=== PATIENT | male | born 1965 | race African-American/Black ===

== ENCOUNTER 2016-08-06 14:43 | Emergency (ER) | payer MEDICARE, MEDICAID ==
[~2016-08-06] VITALS: Ht 172.7 cm; Wt 59.1 kg
[~2016-08-06 14:43] MED LIST: ANTIVERT 12.512.5 MG PO; ANTIVERT 25MG25 MG PO; BACTRIM DS 8001 TAB PO; CIPRO; CIPRO 100MG TA100 MG PO; CIPRO 250MG TA250 MG PO; CIPRO 500MG TA500 MG PO; CLEOCIN HCL300 MG PO; CLINDAMYCIN300 MG PO; DARVOCET N; DAZIDOX20 MG PO; DIAZEPAM5 MG PO; DILAUDID 4MG TAB4 MG PO; EFFEXOR; EXALGO8 MG PO; FLOMAX 0.40.4 MG/CAP PO; LORTAB 10/500 51 TAB; LORTAB 5/500 501 TAB PO; LYRICA 50MG CAP50 MG PO; MECLIZINE12.5 MG PO; NAPROSYN500 MG PO; NORCO 325 MG-51 TAB PO; PERCOCET 325 MG1 TA2 PO; PERCOCET 5/321 UDTAB PO; PHENERGAN 25 TA25 MG PO; PRISTIQ50 MG PO; PROPOXYPHENE HC65 MG PO; SOMA 350MG350 MG/TAB PO; TYLENOL W/COD1 UDTAB PO; VALIUM 5MG T5 MG/TAB PO; VALIUM5 MG PO; WARFARIN PO; ZOCOR 20MG20 MG PO
[2016-08-06 15:01] VITALS: BP 137/95; TEMP 99
[2016-08-06 16:56] LABS: BASO % 0.6 % (0.0-2.0); EOS # 0.1 (0.0-0.7); GRAN # 4.1 (1.4-6.5); GRAN % 57.3 % (42.2-75.2); HEMOGLOBIN 14.7 g/dl (13.5-18.0); LYMPH # 1.9 (1.2-3.4); LYMPH % 27.4 % (20.0-51.0); MEAN CELL VOLUME 84 fl (80.0-100.0); MEAN CORPUSCULAR HEMOGLOBIN 28 pg (27.0-31.0); MEAN CORPUSCULAR HGB CONC 33 g/dl (33.0-37.0); MEAN PLATELET VOLUME 10.8 fl (7.4-10.4); MONO % 13.4 % (1.7-9.3); PLATELET COUNT 250 K/mm3 (130-400); RED BLOOD COUNT 5.24 M/mm3 (4.20-5.60); REDCELL DISTRIBUTION WIDTH-CV 15.3 % (11.5-14.5); WHITE BLOOD COUNT 7.1 K/mm3 (4.8-10.8)
[2016-08-06 17:12] LABS: ADJUSTED CALCIUM 9.8 mg/dL (8.4-10.2); ALBUMIN 4.6 gm/dL (3.5-5.0); BILIRUBIN,TOTAL 0.8 mg/dL (0.0-1.0); CALCIUM 10.3 mg/dL (8.4-10.2); CREATININE, serum 0.87 mg/dL (0.66-1.25); POTASSIUM 4.2 mmol/L (3.4-5.0)
[2016-08-06] MEDS ORDERED: CLEOCIN HC150 MG/CAP PO (17:57)
[2016-08-06 18:09] VITALS: PULSE 74
== END 2016-08-06 18:11 | disposition home or self-care (01) ==
LOC: COL.ER 14:43
PROVIDERS: Emergency Medicine
DX: M79.604 Pain in right leg (principal); I89.1 Lymphangitis
CPT/HCPCS: J7030

== ENCOUNTER → 2017-10-31 | Outpatient (CLI) | payer MEDICARE, MEDICAID ==
[~2017-10-31] MED LIST changes: +CLEOCIN HC150 MG/CAP PO
== END ==
LOC: COL.RAD 09:31
DX: M86.661 Other chronic osteomyelitis, right tibia and fibula (principal)
CPT/HCPCS: A9503

== ENCOUNTER → 2017-12-10 | Outpatient (CLI) | payer MEDICARE, MEDICAID | LOC: MHCPAIN 14:25 | DX: G89.29 Other chronic pain (principal); M47.27 Other spondylosis with radiculopathy, lumbosacral region; M53.3 Sacrococcygeal disorders, not elsewhere classified; F17.210 Nicotine dependence, cigarettes, uncomplicated | CPT/HCPCS: G0463 ==

== ENCOUNTER → 2017-12-10 | Outpatient (CLI) | payer MEDICARE, MEDICAID ==
[2017-12-10 16:16] LABS: BASO % 0.6 % (0.0-2.0); EOS % 0.7 % (0-4.0); GRAN # 2.5 (1.4-6.5); GRAN % 45.7 % (42.2-75.2); HEMATOCRIT 46.4 % (42.0-52.0); HEMOGLOBIN 15.6 g/dl (13.5-18.0); LYMPH % 37.8 % (20.0-51.0); MEAN CELL VOLUME 84 fl (80.0-100.0); MEAN CORPUSCULAR HEMOGLOBIN 28 pg (27.0-31.0); MEAN CORPUSCULAR HGB CONC 34 g/dl (33.0-37.0); MEAN PLATELET VOLUME 9.4 fl (7.4-10.4); MONO # 0.8 (0.1-0.6); PLATELET COUNT 287 K/mm3 (130-400); RED BLOOD COUNT 5.52 M/mm3 (4.20-5.60); REDCELL DISTRIBUTION WIDTH-CV 14.9 % (11.5-14.5)
[2017-12-10 16:49] LABS: ERYTHROCYTE SEDIMENTATION RATE 1 mm/hr (0-30)
== END ==
LOC: COL.LAB 15:37
PROVIDERS: Anesthesiology Pain Medicine
DX: Z87.39 Personal history of other diseases of the musculoskeletal system and connective tissue (principal)

== ENCOUNTER → 2017-12-26 | Outpatient (CLI) | payer MEDICARE, MEDICAID | LOC: MHCPAIN 12:45 | DX: M47.817 Spondylosis without myelopathy or radiculopathy, lumbosacral region (principal); M51.27 Other intervertebral disc displacement, lumbosacral region | CPT/HCPCS: J1100; J2250; J3010; Q9967 ==

== ENCOUNTER → 2018-01-06 | Outpatient (CLI) | payer MEDICARE, MEDICAID | LOC: MHCPAIN 14:11 | DX: G89.29 Other chronic pain (principal); M47.817 Spondylosis without myelopathy or radiculopathy, lumbosacral region; M54.16 Radiculopathy, lumbar region; M53.3 Sacrococcygeal disorders, not elsewhere classified | CPT/HCPCS: G0463 ==

== ENCOUNTER → 2018-02-11 | Outpatient (CLI) | payer MEDICARE, MEDICAID | LOC: MHCPAIN 11:24 | DX: G89.29 Other chronic pain (principal); M47.817 Spondylosis without myelopathy or radiculopathy, lumbosacral region; M54.16 Radiculopathy, lumbar region; M53.3 Sacrococcygeal disorders, not elsewhere classified | CPT/HCPCS: G0463 ==

== ENCOUNTER → 2018-02-20 | Outpatient (CLI) | payer MEDICARE, MEDICAID | LOC: MHCPAIN 13:10 | DX: M47.817 Spondylosis without myelopathy or radiculopathy, lumbosacral region (principal) | CPT/HCPCS: J1040; Q9967 ==

== ENCOUNTER → 2018-03-25 | Outpatient (CLI) | payer MEDICARE, MEDICAID | LOC: MHCPAIN 14:56 | DX: G89.29 Other chronic pain (principal); M47.817 Spondylosis without myelopathy or radiculopathy, lumbosacral region; M54.16 Radiculopathy, lumbar region; M53.3 Sacrococcygeal disorders, not elsewhere classified | CPT/HCPCS: G0463; J1040; Q9967 ==

== ENCOUNTER → 2018-03-27 | Outpatient (CLI) | payer MEDICARE, MEDICAID ==
[~2018-03-27] MED LIST changes: +NORCO 325 MG-7.1 TAB PO
== END ==
LOC: MHCPAIN 13:17
DX: M53.3 Sacrococcygeal disorders, not elsewhere classified (principal); M47.817 Spondylosis without myelopathy or radiculopathy, lumbosacral region
CPT/HCPCS: G0260

== ENCOUNTER → 2018-04-22 | Outpatient (CLI) | payer MEDICARE, MEDICAID | LOC: MHCPAIN 13:52 | DX: G89.29 Other chronic pain (principal); M47.817 Spondylosis without myelopathy or radiculopathy, lumbosacral region; M54.16 Radiculopathy, lumbar region; M53.3 Sacrococcygeal disorders, not elsewhere classified | CPT/HCPCS: G0463 ==

== ENCOUNTER → 2018-08-20 | Outpatient (CLI) | payer MEDICARE, MEDICAID | LOC: MHCPAIN 13:54 | DX: G89.29 Other chronic pain (principal); M47.817 Spondylosis without myelopathy or radiculopathy, lumbosacral region; M54.16 Radiculopathy, lumbar region; M53.3 Sacrococcygeal disorders, not elsewhere classified | CPT/HCPCS: G0463 ==

== ENCOUNTER → 2018-08-21 | Outpatient (CLI) | payer MEDICARE, MEDICAID | LOC: MHCPAIN 13:20 | DX: M53.3 Sacrococcygeal disorders, not elsewhere classified (principal) | CPT/HCPCS: G0260; J1040; Q9967 ==

== ENCOUNTER → 2018-12-31 | Outpatient (CLI) | payer MEDICARE, MEDICAID | LOC: MHCPAIN 05-29 14:31 | DX: G89.29 Other chronic pain (principal); M47.817 Spondylosis without myelopathy or radiculopathy, lumbosacral region; M54.16 Radiculopathy, lumbar region; M53.3 Sacrococcygeal disorders, not elsewhere classified | CPT/HCPCS: G0463 ==

== ENCOUNTER 2019-08-12 15:29 | Emergency (ER) | payer MEDICARE, MEDICAID ==
[~2019-08-12] VITALS: Ht 172.7 cm; Wt 59.1 kg
[~2019-08-12 15:29] MED LIST changes: +FLEXERIL 1010 MG/TAB PO
[2019-08-12 15:32] VITALS: TEMP 97.1
[2019-08-12 16:02] LABS: BASO % 0.6 % (0.0-2.0); EOS # 0.1 (0.0-0.7); EOS % 1.2 % (0-4.0); GRAN # 2.8 (1.4-6.5); GRAN % 40.3 % (42.2-75.2); HEMATOCRIT 43.2 % (42.0-52.0); HEMOGLOBIN 14.1 g/dl (13.5-18.0); LYMPH % 43.2 % (20.0-51.0); MEAN CELL VOLUME 86 fl (80.0-100.0); MEAN CORPUSCULAR HEMOGLOBIN 28 pg (27.0-31.0); MEAN CORPUSCULAR HGB CONC 33 g/dl (33.0-37.0); MEAN PLATELET VOLUME 9.6 fl (7.4-10.4); MONO % 14.3 % (1.7-9.3); PLATELET COUNT 270 K/mm3 (130-400); RED BLOOD COUNT 5.05 M/mm3 (4.20-5.60)
[2019-08-12 16:07] LABS: INR 0.9 (0.8-3.0); PROTHROMBIN TIME 10.4 SECONDS (9.7-12.8)
[2019-08-12 16:10] LABS: PARTIAL THROMBOPLASTIN TIME 28.6 SECONDS (26.0-37.0)
[2019-08-12 16:11] LABS: D-DIMER < 200.00 ng/mLDDu (200-230)
[2019-08-12 16:15] LABS: ALANINE AMINOTRANSFERASE 24 U/L (21-72); ALBUMIN 4.6 gm/dL (3.5-5.0); ALKALINE PHOSPHATASE 70 U/L (50-136); ANION GAP 7 mmol/L (7-16); AST,SGOT 29 U/L (15-37); BILIRUBIN,TOTAL 0.5 mg/dL (0.0-1.0); BLOOD UREA NITROGEN 11 mg/dL (9-20); CALCIUM 9.6 mg/dL (8.4-10.2); CARBON DIOXIDE 25 mmol/L (22-30); CHLORIDE 107 mmol/L (98-107); CREATINE KINASE 160 U/L (55-170); CREATININE, serum 0.76 (0.66-1.25); GLUCOSE 107 mg/dL (74-106); LIPASE 36 U/L (23-300); POTASSIUM 4.3 mmol/L (3.4-5.0); SODIUM 139 mmol/L (137-145); TOTAL PROTEIN 7.8 gm/dL (6.4-8.2)
[2019-08-12 16:32] LABS: TROPONIN-I < 0.012 ng/mL (0.000-0.035)
[2019-08-12 20:00] VITALS: BP 116/79; PULSE 55
== END 2019-08-12 20:00 | disposition home or self-care (01) ==
LOC: COL.ER 15:29
PROVIDERS: Emergency Medicine
DX: R07.89 Other chest pain (principal); E78.5 Hyperlipidemia, unspecified; F17.210 Nicotine dependence, cigarettes, uncomplicated
CPT/HCPCS: J1885

== ENCOUNTER 2019-10-06 08:51 | Day surgery (SDC) | payer MEDICARE, MEDICAID ==
[2019-10-06] VITALS (13 sets, daily range): BP systolic 118–164; BP diastolic 75–95; PULSE 52–69; TEMP 98.5
[~2019-10-06] VITALS: Ht 172.8 cm; Wt 62.9 kg
[2019-10-06 09:36] LABS: HEMATOCRIT 39.6 % (42.0-52.0); MEAN CELL VOLUME 85 fl (80.0-100.0); MEAN CORPUSCULAR HEMOGLOBIN 28 pg (27.0-31.0); MEAN CORPUSCULAR HGB CONC 33 g/dl (33.0-37.0); MEAN PLATELET VOLUME 9.7 fl (7.4-10.4); PLATELET COUNT 234 K/mm3 (130-400); RED BLOOD COUNT 4.68 M/mm3 (4.20-5.60); REDCELL DISTRIBUTION WIDTH-CV 15.5 % (11.5-14.5)
[2019-10-06 09:40] LABS: INR 0.9 (0.8-3.0); PROTHROMBIN TIME 9.9 SECONDS (9.7-12.8)
[2019-10-06 09:43] LABS: PARTIAL THROMBOPLASTIN TIME 27.6 SECONDS (26.0-37.0)
[2019-10-06 09:54] LABS: CALCIUM 8.7 mg/dL (8.4-10.2); CREATININE, serum 0.8 (0.66-1.25); POTASSIUM 3.9 mmol/L (3.4-5.0)
[2019-10-06] MEDS ORDERED: CIPRO 500MG TA500 MG PO (10:08)
[2019-10-06] MEDS ORDERED: PROTONIX20 MG PO (10:12)
[2019-10-06] MEDS ORDERED: ASPIRIN 81M81 MG/TA2 PO (10:12)
[2019-10-06] MEDS ORDERED: FLOMAX 0.40.4 MG/CAP PO (10:13)
--- NOTE | 2019-10-06 10:20 | NUR ---
Pt to procedure.
--- NOTE | 2019-10-06 10:32 | NUR ---
SEE MERGE FOR MEDICATION ADMINISTRATION TIMES AND INTRA/POST PROCEDURE SEDATION ASSESSMENTS.
--- NOTE | 2019-10-06 10:34 | NUR ---
Pt to procedure.
--- NOTE | 2019-10-06 16:00 | NUR ---
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
--- NOTE | 2019-10-06 16:32 | NUR ---
Pt escorted out and assisted into taxt.
== END 2019-10-06 16:32 | disposition home or self-care (01) ==
LOC: COL.CAR 08:51
PROVIDERS: Internal Medicine Cardiovascular Disease
DX: R94.39 Abnormal result of other cardiovascular function study (principal); I08.3 Combined rheumatic disorders of mitral, aortic and tricuspid valves; R07.89 Other chest pain; J45.909 Unspecified asthma, uncomplicated; I50.20 Unspecified systolic (congestive) heart failure; E78.00 Pure hypercholesterolemia, unspecified; E78.5 Hyperlipidemia, unspecified; M86.661 Other chronic osteomyelitis, right tibia and fibula; G89.29 Other chronic pain; F17.210 Nicotine dependence, cigarettes, uncomplicated; Z88.8 Allergy status to other drugs, medicaments and biological substances; Z88.5 Allergy status to narcotic agent; Z79.51 Long term (current) use of inhaled steroids; Z80.9 Family history of malignant neoplasm, unspecified; Z83.3 Family history of diabetes mellitus; Z86.718 Personal history of other venous thrombosis and embolism; Z79.82 Long term (current) use of aspirin
CPT/HCPCS: J1644; J2250; J3010; Q9967

== ENCOUNTER 2019-11-28 09:48 | Emergency (ER) | payer MEDICARE, MEDICAID ==
[~2019-11-28] VITALS: Ht 172.7 cm; Wt 59.1 kg
[~2019-11-28 09:48] MED LIST changes: +ASPIRIN 81M81 MG/TA2 PO; +PROTONIX20 MG PO
[2019-11-28 10:16] VITALS: BP 141/65
[2019-11-28 10:58] VITALS: TEMP 98.5
[2019-11-28 11:30] LABS: BASO # 0.1 (0.0-0.2); BASO % 0.5 % (0.0-2.0); EOS # 0.2 (0.0-0.7); EOS % 1.3 % (0-4.0); GRAN % 68.8 % (42.2-75.2); HEMATOCRIT 40.7 % (42.0-52.0); HEMOGLOBIN 13.5 g/dl (13.5-18.0); LYMPH # 1.6 (1.2-3.4); LYMPH % 13.9 % (20.0-51.0); MEAN CELL VOLUME 83 fl (80.0-100.0); MEAN CORPUSCULAR HEMOGLOBIN 28 pg (27.0-31.0); MEAN CORPUSCULAR HGB CONC 33 g/dl (33.0-37.0); MEAN PLATELET VOLUME 9.5 fl (7.4-10.4); MONO # 1.7 (0.1-0.6); PLATELET COUNT 254 K/mm3 (130-400); RED BLOOD COUNT 4.88 M/mm3 (4.20-5.60); REDCELL DISTRIBUTION WIDTH-CV 15.2 % (11.5-14.5)
[2019-11-28 11:42] LABS: ALBUMIN 4.3 gm/dL (3.5-5.0); BILIRUBIN,TOTAL 0.6 mg/dL (0.0-1.0); C-REACTIVE PROTEIN 8.3 mg/dL (0.0-0.9); CALCIUM 9.6 mg/dL (8.4-10.2); CREATININE, serum 0.76 (0.66-1.25); POTASSIUM 4.1 mmol/L (3.4-5.0); TOTAL PROTEIN 7.8 gm/dL (6.4-8.2)
[2019-11-28] MEDS ORDERED: OMNICEF 300MG300 MG PO (13:21)
[2019-11-28] MEDS ORDERED: DOXYCYCLINE 10100 MG PO (13:21)
[2019-11-28 14:05] VITALS: PULSE 81
[2019-11-28] MEDS ORDERED: MIRALAX238G PO (20:57)
[2019-11-28] MEDS ORDERED: NORCO 325 MG-51 TAB PO (20:57)
== END 2019-11-28 14:05 | disposition home or self-care (01) ==
LOC: COL.ER 09:48
PROVIDERS: Emergency Medicine
DX: N45.1 Epididymitis (principal); Z79.82 Long term (current) use of aspirin
CPT/HCPCS: J0696; J1170; J2405; J7030

== ENCOUNTER 2019-11-28 18:34 | Emergency (ER) | payer MEDICARE, MEDICAID ==
[~2019-11-28] VITALS: Ht 172.7 cm; Wt 59.1 kg
[~2019-11-28 18:34] MED LIST changes: +DOXYCYCLINE 10100 MG PO; +OMNICEF 300MG300 MG PO
[2019-11-28 18:37] VITALS: BP 135/61; TEMP 99.8
[2019-11-28] MEDS ORDERED: MIRALAX238G PO (20:57)
[2019-11-28] MEDS ORDERED: NORCO 325 MG-51 TAB PO (20:57)
[2019-11-28 21:12] VITALS: PULSE 97
== END 2019-11-28 21:00 | disposition home or self-care (01) ==
LOC: COL.ER 18:34
DX: N45.1 Epididymitis (principal); Z79.82 Long term (current) use of aspirin

== ENCOUNTER → 2020-06-24 | Outpatient (CLI) | payer MEDICARE, MEDICAID ==
[~2020-06-24] MED LIST changes: +MIRALAX238G PO
== END ==
LOC: COL.RAD 15:33
DX: M47.816 Spondylosis without myelopathy or radiculopathy, lumbar region (principal); M47.817 Spondylosis without myelopathy or radiculopathy, lumbosacral region

== ENCOUNTER → 2020-09-07 | Outpatient (CLI) | payer MEDICARE, MEDICAID | LOC: MHCPAIN 14:20 | DX: M47.817 Spondylosis without myelopathy or radiculopathy, lumbosacral region (principal); M54.16 Radiculopathy, lumbar region; M53.3 Sacrococcygeal disorders, not elsewhere classified; G89.29 Other chronic pain | CPT/HCPCS: G0463 ==

== ENCOUNTER 2020-10-04 16:44 | Inpatient (IN) | payer MEDICARE ==
[~2020-10-04] VITALS: Ht 172.7 cm; Wt 59.1 kg
[2020-10-04] MEDS ORDERED: COREG 3.123.125 MG/T PO (17:40)
[2020-10-04] MEDS ORDERED: CYMBALTA 20MG20 MG PO ×2 (17:42→22:28)
[2020-10-04] MEDS ORDERED: CRESTOR20 MG PO (17:42)
[2020-10-04 18:22] LABS: BASO # 0.1 (0.0-0.2); BASO % 0.6 % (0.0-2.0); EOS # 0.1 (0.0-0.7); EOS % 0.7 % (0-4.0); GRAN # 4.7 (1.4-6.5); GRAN % 54.9 % (42.2-75.2); HEMATOCRIT 37.5 % (42.0-52.0); HEMOGLOBIN 12.4 g/dl (13.5-18.0); LYMPH # 2.7 (1.2-3.4); LYMPH % 31.3 % (20.0-51.0); MEAN CELL VOLUME 85 fl (80.0-100.0); MEAN CORPUSCULAR HEMOGLOBIN 28 pg (27.0-31.0); MEAN CORPUSCULAR HGB CONC 33 g/dl (33.0-37.0); MEAN PLATELET VOLUME 10.3 fl (7.4-10.4); MONO # 1.1 (0.1-0.6); MONO % 12.2 % (1.7-9.3); PLATELET COUNT 222 K/mm3 (130-400); RED BLOOD COUNT 4.42 M/mm3 (4.20-5.60)
[2020-10-04 18:32] LABS: INR 0.9 (0.8-3.0); PROTHROMBIN TIME 10.1 SECONDS (9.7-12.8)
[2020-10-04 18:35] LABS: ALANINE AMINOTRANSFERASE 52 U/L (4-49); ALBUMIN 4.4 gm/dL (3.5-5.0); ALKALINE PHOSPHATASE 86 U/L (50-136); ANION GAP 8 mmol/L (7-16); AST,SGOT 52 U/L (15-37); BILIRUBIN,TOTAL 0.8 mg/dL (0.0-1.0); BLOOD UREA NITROGEN 16 mg/dL (9-20); C-REACTIVE PROTEIN 4.3 mg/dL (0.0-0.9); CALCIUM 9.7 mg/dL (8.4-10.2); CARBON DIOXIDE 27 mmol/L (22-30); CHLORIDE 104 mmol/L (98-107); CREATININE, serum 0.75 (0.66-1.25); GLUCOSE 89 mg/dL (74-106); LIPASE 51 U/L (23-300); POTASSIUM 3.7 mmol/L (3.4-5.0); SODIUM 140 mmol/L (137-145); TOTAL PROTEIN 7.4 gm/dL (6.4-8.2)
[2020-10-04 18:45] LABS: TROPONIN-I < 0.012 ng/mL (0.000-0.035)
[2020-10-04 20:03] LABS: COLLECTION METHOD CLEAN CATCH
[2020-10-04 20:10] LABS: PH 6 (5-8); SQUAMOUS EPITHELIAL 0-2 /hpf; URINE APPEARANCE Clear; URINE BACTERIA Occasional /hpf; URINE BILIRUBIN Negative (NEGATIVE); URINE BLOOD 1+ (NEGATIVE); URINE COLOR Yellow; URINE GLUCOSE Negative (NEGATIVE); URINE KETONE Negative (NEGATIVE); URINE LEUKOCYTE ESTERASE 1+ (NEGATIVE); URINE NITRATE Positive (NEGATIVE); URINE PROTEIN(semi-quant) Negative (NEGATIVE); URINE RBC 0-2 /hpf; URINE UROBILINOGEN Negative (NEGATIVE)
[2020-10-04] MEDS ORDERED: MOBIC15 MG PO (22:30)
--- NOTE | 2020-10-04 22:52 | NUR ---
Patient up from ED via wheelchair. Oriented to room and call light. Venetia box provided. Admission and med rec done. Swelling and pain to right lower extremity. No other needs at this time.
[2020-10-04 23:13] VITALS: BP 151/73; PULSE 83; TEMP 97.5
--- NOTE | 2020-10-05 03:38 | NUR ---
Vancomycin Initial Dosing Pharmacy Note Ordering provider: Haroon Paredes MD Indication/duration: Bone/joint infection Relevant comorbidities: cellulitis LABS: WBC = 8.6, SCr= 0.75 Recommendation: Will draw troughs and follow levels. Loading dose: 1.5 grams Maintenance dose: 1 gram every 12 hours Trough goal: 15-20 ug/mL
[2020-10-05 04:05] VITALS: BP 134/66; PULSE 61; TEMP 97.8
[2020-10-05 07:40] LABS: BASO % 0.7 % (0.0-2.0); EOS # 0.1 (0.0-0.7); EOS % 1.5 % (0-4.0); GRAN # 2.6 (1.4-6.5); GRAN % 43.2 % (42.2-75.2); HEMOGLOBIN 10.6 g/dl (13.5-18.0); LYMPH # 2.4 (1.2-3.4); LYMPH % 40.4 % (20.0-51.0); MEAN CELL VOLUME 85 fl (80.0-100.0); MEAN CORPUSCULAR HEMOGLOBIN 28 pg (27.0-31.0); MEAN CORPUSCULAR HGB CONC 33 g/dl (33.0-37.0); MEAN PLATELET VOLUME 10.5 fl (7.4-10.4); MONO # 0.8 (0.1-0.6); MONO % 13.9 % (1.7-9.3); PLATELET COUNT 215 K/mm3 (130-400); RED BLOOD COUNT 3.83 M/mm3 (4.20-5.60); REDCELL DISTRIBUTION WIDTH-CV 16.7 % (11.5-14.5)
[2020-10-05 07:56] LABS: HEMATOCRIT 32.4 % (42.0-52.0)
[2020-10-05 07:57] LABS: ALBUMIN 3.1 gm/dL (3.5-5.0); BILIRUBIN,TOTAL 0.2 mg/dL (0.0-1.0); CALCIUM 8.6 mg/dL (8.4-10.2); CREATININE, serum 0.75 (0.66-1.25); POTASSIUM 3.7 mmol/L (3.4-5.0); TOTAL PROTEIN 5.6 gm/dL (6.4-8.2)
--- NOTE | 2020-10-05 08:00 | NUR ---
Assessment as charted. Pt resting in bed. RLE deformity, edema pitting +2, pedal pulse in Rt leg harder to find due to edema. CMS checks WNL. Pt does have complaint of pain to RLE, rates pain 8/10, sharp/aching pain. Primary nurse notified. INT intact without reness and swelling
[2020-10-05] MEDS ORDERED: 00186-0370-20 IH (08:09)
--- NOTE | 2020-10-05 08:13 | NUR ---
Pt doing well this morning. Right leg is significantly more swollen than the left. He stated prior to the cellulitis flare up, both legs are comparable in size. Pt having quite a bit of pain in the right leg, states it is worse when it is touched. Pain medication given. Discussed the possibility of needing a PICC line due to his diagnosis, but would wait and see what ID says. Pt's nikolaikast has arrived, will continue to monitor
[2020-10-05 09:05] VITALS: BP 138/78; PULSE 66
--- NOTE | 2020-10-05 09:40 | NUR ---
Initial visit; Patient thanked Reel Film Inspector for offering encouragement and God's blessings. Reel Film Inspector will keep Varun in her prayers.
[2020-10-05 10:55] VITALS: BP 146/80; PULSE 94; TEMP 97.9
--- NOTE | 2020-10-05 13:47 | NUR ---
Pt doing well, denies any needs, will continue to monitor
--- NOTE | 2020-10-05 15:06 | NUR ---
Hair Boiler Operator met with patient to discuss discharge planning. Patient lives alone in [place] and sees Dr. Saini for primary care. 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 Patient obtains medications from [facility] with no difficulties. Patient has a blood pressure monitor and no other DME. Patient reports he is independent with ADLS and plans to return home upon discharge. Patient does not have Advance Directives at this time but states this is something he is working on. SW offered assistance with completing DPOA-HC, however patient states he is not interested in assistance at this time. Patient's legal next of kin is his daughter, Muriel (ph#[phone]) although patient states they have not been in contact for quite some time. Patient states his sister in law, Maddison (ph#[phone]) is the best point of contact for him at this time. SW contacted MARY Jernigan at Dr. Saini's office to update her that patient was admitted. SW will continue to follow for discharge needs.
--- NOTE | 2020-10-05 15:34 | NUR ---
Pt complaining of pain, mostly in his right groin. Pt was not due for pain medication yet, PA notified and orders changed. Pain medication given. Pt had a late lunch and finished everything. No other needs to complaints, will continue to monitor
[2020-10-05 15:57] VITALS: BP 137/80; PULSE 59; TEMP 98.1
--- NOTE | 2020-10-05 18:30 | NUR ---
Pt did well the rest of the day. Reports that the pain medication is helping. No needs, report given
--- NOTE | 2020-10-05 20:40 | NUR ---
Assessment complete. Pt is AXO X3, states he has pain to his RLE. Breathing is even and unlabored on room air. RA IV infusing free of complications. Pt is sitting up in the bed watching TV at this time and he denies further needs. Call light within reach.
[2020-10-05 20:41] VITALS: BP 155/88; PULSE 75; TEMP 97.9
[2020-10-06 00:14] VITALS: BP 147/87; PULSE 57; TEMP 98.1
[2020-10-06 03:56] VITALS: BP 140/81; PULSE 58; TEMP 98.3
[2020-10-06 06:46] LABS: MEAN CELL VOLUME 85 fl (80.0-100.0); MEAN CORPUSCULAR HEMOGLOBIN 28 pg (27.0-31.0); MEAN CORPUSCULAR HGB CONC 33 g/dl (33.0-37.0); MEAN PLATELET VOLUME 10.1 fl (7.4-10.4); PLATELET COUNT 216 K/mm3 (130-400); RED BLOOD COUNT 3.87 M/mm3 (4.20-5.60); REDCELL DISTRIBUTION WIDTH-CV 16.7 % (11.5-14.5)
[2020-10-06 06:47] LABS: HEMATOCRIT 32.9 % (42.0-52.0)
[2020-10-06 06:56] LABS: CALCIUM 8.9 mg/dL (8.4-10.2); CREATININE, serum 0.83 (0.66-1.25); POTASSIUM 3.7 mmol/L (3.4-5.0)
[2020-10-06 07:05] VITALS: BP 143/71; PULSE 64; TEMP 98.4
--- NOTE | 2020-10-06 08:20 | NUR ---
MORNING SHIFT ASSESSMENT COMPLETED AT THIS TIME. PATIENT RESTING IN BED WITH RLE ELEVATED ON A PILLOW. EDEMA TO LOWER EXTREMITY NOTED. NO OPEN AREAS ON THE SKIN. CALL LIGHT WITHIN REACH. NO OTHER NEEDS AT THIS TIME.
--- NOTE | 2020-10-06 10:29 | NUR ---
PATIENT REPORTING MINIMAL CHANGE IN PAIN LEVEL. THIS NURSE SPOKE WITH RENEA DEE AND NOTIFIED HER THAT THE PATIENT TAKES PAIN PILLS AT HOME AND IS NOT GETTING RELIEF WITH HIS CURRENT PAIN REGIMEN.
--- NOTE | 2020-10-06 10:34 | NUR ---
Follow-up; Varun says he is doing a little better today and thanked Wood Crafter for continuing to check on him and wish him well. Wood Crafter will continue to pray for Varun.
[2020-10-06 11:11] VITALS: BP 139/84; PULSE 66; TEMP 98.8
[2020-10-06 16:24] VITALS: BP 121/80; PULSE 59; TEMP 98.1
--- NOTE | 2020-10-06 19:45 | NUR ---
PT RESTING IN BED. IV ALARMING. SITE APPEARS INFILTRATED. PUMP SHUT OFF. WILL TRY TO START NEW IV SITE. WARM BLANKETS TO BOTH ARMS. DENIES ANY NEEDS AT PRESENT. CALL LIGHT IN REACH.
[2020-10-06 20:21] VITALS: BP 129/68; PULSE 65; TEMP 98.4
[2020-10-07] VITALS (7 sets, daily range): BP systolic 129–161; BP diastolic 69–99; PULSE 55–107; TEMP 97.8–98.4
[2020-10-07 06:47] LABS: HEMOGLOBIN 10.2 g/dl (13.5-18.0); MEAN CELL VOLUME 85 fl (80.0-100.0); MEAN CORPUSCULAR HEMOGLOBIN 28 pg (27.0-31.0); MEAN CORPUSCULAR HGB CONC 33 g/dl (33.0-37.0); MEAN PLATELET VOLUME 10.4 fl (7.4-10.4); PLATELET COUNT 213 K/mm3 (130-400); RED BLOOD COUNT 3.69 M/mm3 (4.20-5.60); REDCELL DISTRIBUTION WIDTH-CV 16.5 % (11.5-14.5)
[2020-10-07 06:52] LABS: HEMATOCRIT 31.2 % (42.0-52.0)
[2020-10-07 06:59] LABS: CALCIUM 8.7 mg/dL (8.4-10.2); CREATININE, serum 0.78 (0.66-1.25); POTASSIUM 3.6 mmol/L (3.4-5.0)
--- NOTE | 2020-10-07 07:36 | NUR ---
Pt IV infiltrates at beginning of shift. Restarted INT in R upper arm with #22. Restarted IV Zosyn running @ 2200, finished at 0145. Started Vanco at 0200. Rescheduled vanco trough for 1300 prior to 1400 dose. STATES PAIN A 8/10 AT HS. PERCOCET X 1 TAB GIVEN AND REPEATED AT 2213. SLEPT OFF AND ON THRU THE NIGHT. REQUESTED AND GIVEN PERCOCET AT 0451 FOR PAIN RATED AT 8/10. INDEPENDENT IN ROOM. DENIES ANY NEEDS THIS AM. CALL LIGHT IN REACH. ZOSYN HUNG AT 0615.
--- NOTE | 2020-10-07 08:11 | NUR ---
PATIENT RESTING IN BED THIS MORNING. STUDENT NURSE PRESENT IN ROOM. SHIFT ASSESSMENT COMPLETE. PATIENT RLE ELEVATED ON A PILLOW. PATIENT HAS BEEN UP INDEPENDENTLY IN THE ROOM. NO NEEDS AT THIS TIME. WILL CONTINUE TO MONITOR.
--- NOTE | 2020-10-07 12:53 | NUR ---
Pipe Fitter Helper collaborated with VONNIE Owen who advised patient has been independent in his room. SW will continue to follow.
--- NOTE | 2020-10-07 15:53 | NUR ---
CALLED AND NOTIFIED THAT THE PATIENT IS REPORTING LEFT SIDED CHEST PAIN BETWEEN THE RIBS OVER THE HEART. PATIENT REPORTS THAT HE HAS HAD THIS DISCOMFORT FOR 1-2 YEARS AND DESCRIBES IT A TWISTING, PINCHING PAIN. PATIENT REPORTS HAVING MULTIPLE PROCEDURES AND IMAGING AND STATES THAT EVERYTHING HAS BEEN CLEAR. TORB TO CONTINUE ADMINISTERING PO PAIN MEDICATIONS NEEDED. NO WORK UP AT THIS TIME. WILL CONTINUE TO MONITOR.
--- NOTE | 2020-10-07 19:10 | NUR ---
PATIENT RESTING IN BED. DINNER TRAY ON BEDSIDE TABLE. CALL LIGHT WITHIN REACH. BEDSIDE REPORT GIVEN TO VONNIE CA.
--- NOTE | 2020-10-07 22:18 | NUR ---
Awake, alert, oriented x 4, able to make all needs known, continues to tolerate IV abt w/o difficulty, ambulating in room independently, call lory w/i reach, VS stable, no c/o at this time
[2020-10-08] VITALS (7 sets, daily range): BP systolic 129–149; BP diastolic 71–112; PULSE 54–63; TEMP 97.7–98.1
[2020-10-08 06:34] LABS: BASO % 0.7 % (0.0-2.0); EOS # 0.1 (0.0-0.7); EOS % 2.3 % (0-4.0); GRAN # 2.7 (1.4-6.5); GRAN % 46.1 % (42.2-75.2); HEMATOCRIT 32.1 % (42.0-52.0); HEMOGLOBIN 10.1 g/dl (13.5-18.0); LYMPH # 1.8 (1.2-3.4); LYMPH % 31.7 % (20.0-51.0); MEAN CELL VOLUME 88 fl (80.0-100.0); MEAN CORPUSCULAR HEMOGLOBIN 28 pg (27.0-31.0); MEAN CORPUSCULAR HGB CONC 32 g/dl (33.0-37.0); MEAN PLATELET VOLUME 10.5 fl (7.4-10.4); MONO # 1.1 (0.1-0.6); MONO % 18.3 % (1.7-9.3); PLATELET COUNT 206 K/mm3 (130-400); RED BLOOD COUNT 3.67 M/mm3 (4.20-5.60); REDCELL DISTRIBUTION WIDTH-CV 16.7 % (11.5-14.5)
[2020-10-08 06:44] LABS: CALCIUM 8.5 mg/dL (8.4-10.2); CREATININE, serum 0.75 (0.66-1.25); POTASSIUM 3.7 mmol/L (3.4-5.0)
--- NOTE | 2020-10-08 07:37 | NUR ---
Contact Stewart in pharmacy to update him in regards to Van trough that was drawn around 0100 in the morning and to assess if dose change needs to be done.
--- NOTE | 2020-10-08 07:51 | NUR ---
Stewart calls back and explains that he changed for the Vanc to be given TID.
--- NOTE | 2020-10-08 08:08 | NUR ---
Lying in bed with eyes open. Alert and oriented x4. Has generalized body pain and headache, would like a Percocet, will administer as prescribed. Right lower extremity with 3+ edema. Patient denies additional needs or concerns at this time.
--- NOTE | 2020-10-08 10:49 | NUR ---
First visit from the geospatial specialist. No needs right now.
--- NOTE | 2020-10-08 13:52 | NUR ---
Lying in bed with eyes closed. Respirations even and unlabored. No signs or symptoms of discomfort noted at this time.
--- NOTE | 2020-10-08 15:09 | NUR ---
Lying in bed with eyes open. Rates general body pain 7/10, would like pain medication. Percocet administered as prescribed. Patient up in room independently to bathroom. Denies additional needs or concerns at this time.
--- NOTE | 2020-10-08 15:31 | NUR ---
SW spoke with patient's RN. Patient is currently on antibiotics and having vanc trough address. Patient will not discharge today.
--- NOTE | 2020-10-08 16:52 | NUR ---
Patient sitting up in bed watching TV. Minimal pain at this time. Provide towels as patient says that he will clean up some time later. Denies additional needs at this time.
--- NOTE | 2020-10-08 19:30 | NUR ---
Pt. sitting up in bed. Pt. is A&OX3, assessment complete. INT to rt. upper arm patent. RLE +3 edema noted. Reddness and swelling to rodriguez and lateral calf noted. Pt. reported pain at a 6 on pain scale, gave pain meds per orders. Pt. denies further needs, call light within reach.
[2020-10-09 04:55] VITALS: BP 140/81; PULSE 60; TEMP 98
[2020-10-09 06:26] LABS: HEMOGLOBIN 10.2 g/dl (13.5-18.0); MEAN CELL VOLUME 85 fl (80.0-100.0); MEAN CORPUSCULAR HEMOGLOBIN 28 pg (27.0-31.0); MEAN CORPUSCULAR HGB CONC 32 g/dl (33.0-37.0); MEAN PLATELET VOLUME 10.7 fl (7.4-10.4); PLATELET COUNT 220 K/mm3 (130-400); RED BLOOD COUNT 3.69 M/mm3 (4.20-5.60); REDCELL DISTRIBUTION WIDTH-CV 16.5 % (11.5-14.5)
[2020-10-09 06:28] LABS: HEMATOCRIT 31.5 % (42.0-52.0)
[2020-10-09 06:36] LABS: CALCIUM 8.7 mg/dL (8.4-10.2); CREATININE, serum 0.87 (0.66-1.25); POTASSIUM 3.9 mmol/L (3.4-5.0)
[2020-10-09 07:09] VITALS: BP 131/62; PULSE 56; TEMP 97.9
--- NOTE | 2020-10-09 07:19 | NUR ---
Lying in bed with eyes open. Alert and oriented x4. Rates general body pain 6/10, describes as ache, feels that the pain medication is helping to decrease the pain. Patient is hopeful to go home today. Denies needs at this time.
--- NOTE | 2020-10-09 10:20 | NUR ---
Review all discharge instructions with the patient. Denies questions, verbalizes understanding, and signs discharge documents. Discharge packet provided to patient at this time. Vanc started at this time. Patient says that he will call to see who can come to pick him up. Explain to let us know when his ride will be coming .Explain that the Vanc should take about one hour to go in and to let me know when it was done so we could unhook him and dc his IV. Patient verbalizes understanding and denies additional needs.
[2020-10-09 11:11] VITALS: BP 146/82; PULSE 56; TEMP 97.9
--- NOTE | 2020-10-09 12:51 | NUR ---
Patient ready for discharge as ride is here. KENTON Rodriguez, assists patient to POV with all personal belongings.
== END 2020-10-09 12:52 | disposition home or self-care (01) | DRG 603 ==
LOC: COL.ER 16:44 → JCC 19:23
PROVIDERS: Emergency Medicine; Physician Assistant; Student in an Organized Health Care Education/Training Program; ADMIT Hospitalist
DX: L03.115 Cellulitis of right lower limb (principal); M86.8X6 Other osteomyelitis, lower leg; N39.0 Urinary tract infection, site not specified; R59.1 Generalized enlarged lymph nodes; F32.9 Major depressive disorder, single episode, unspecified; E78.5 Hyperlipidemia, unspecified; F17.210 Nicotine dependence, cigarettes, uncomplicated; R74.01 Elevation of levels of liver transaminase levels; D50.0 Iron deficiency anemia secondary to blood loss (chronic); B96.20 Unspecified Escherichia coli [E. coli] as the cause of diseases classified elsewhere
CPT/HCPCS: 99222-AI; 99231-AI; 99232-AI; 99239; G0378; J1650; J2270; J2543; J3370; J7030; J7050

== ENCOUNTER → 2022-03-26 | Outpatient (CLI) | payer MEDICARE, MEDICAID ==
[~2022-03-26] MED LIST changes: +00186-0370-20 IH; +COREG 3.123.125 MG/T PO; +CRESTOR20 MG PO; +CYMBALTA 20MG20 MG PO; +MOBIC15 MG PO
== END ==
LOC: COL.RAD 13:07
DX: M51.27 Other intervertebral disc displacement, lumbosacral region (principal); M54.16 Radiculopathy, lumbar region

== ENCOUNTER 2023-08-25 13:43 | Emergency (ER) | payer MEDICARE, MEDICAID ==
[~2023-08-25] VITALS: Ht 172.7 cm; Wt 59.1 kg
[~2023-08-25 13:43] MED LIST changes: +CEPHALEXIN500 M1 PO
[2023-08-25 13:53] VITALS: TEMP 97
[2023-08-25 14:25] LABS: BASO % 0.2 % (0.0-2.0); GRAN # 13.2 K/mm3 (1.4-6.5); GRAN % 88.1 % (42.2-75.2); HEMATOCRIT 42.8 % (42.0-52.0); HEMOGLOBIN 14.4 g/dl (13.5-18.0); LYMPH # 0.9 K/mm3 (1.2-3.4); LYMPH % 6.3 % (20.0-51.0); MEAN CELL VOLUME 84 fl (80.0-100.0); MEAN CORPUSCULAR HEMOGLOBIN 28 pg (27-31); MEAN CORPUSCULAR HGB CONC 34 g/dl (33.0-37.0); MONO # 0.7 K/mm3 (0.1-0.6); MONO % 4.9 % (1.7-9.3); PLATELET COUNT 241 K/mm3 (130-400); RED BLOOD COUNT 5.11 M/mm3 (4.20-5.60); REDCELL DISTRIBUTION WIDTH-CV 15.3 % (11.5-14.5)
[2023-08-25] MEDS ORDERED: Meclizine 25 MG TAB PO ONE (14:30)
[2023-08-25] MEDS ORDERED: NS 1,000 ML IV ONE (14:30)
[2023-08-25 14:40] LABS: BILIRUBIN,TOTAL 0.4 mg/dL (0.2-1.2); CALCIUM 10.5 mg/dL (8.4-10.2); CREATININE, serum 0.85 mg/dL (0.72-1.25); POTASSIUM 3.7 mmol/L (3.5-4.5); TOTAL PROTEIN 7.8 gm/dL (6.2-8.1)
[2023-08-25] MEDS ORDERED: Ketorolac 15 MG/ML VIAL IV ONE (15:45)
[2023-08-25 16:53] LABS: COLLECTION METHOD CLEAN CATCH
[2023-08-25 17:06] LABS: PH 5.5 (5.0-8.5); URINE APPEARANCE Turbid (CLEAR/HAZY); URINE COLOR Amber (YELLOW); URINE GLUCOSE Negative (NEGATIVE); URINE KETONE 2+ (NEGATIVE); URINE NITRATE Positive (NEGATIVE); URINE PROTEIN(semi-quant) 1+ (NEGATIVE); URINE UROBILINOGEN 0.2 E.U/dL (0.2-1.0)
[2023-08-25 17:07] LABS: URINE BACTERIA Moderate /hpf (NONE SEEN); URINE BLOOD 2+ (NEGATIVE)
[2023-08-25 18:03] VITALS: BP 138/84; PULSE 57
== END 2023-08-25 18:03 | disposition home or self-care (01) ==
LOC: COL.ER 13:43
PROVIDERS: Nurse Practitioner
DX: N39.0 Urinary tract infection, site not specified (principal); R42 Dizziness and giddiness; M86.661 Other chronic osteomyelitis, right tibia and fibula
CPT/HCPCS: J1885; J7030

== ENCOUNTER → 2024-04-27 | Outpatient (CLI) | payer MEDICAID | LOC: COL.RAD 10:38 | DX: R22.2 Localized swelling, mass and lump, trunk (principal) ==